=== PATIENT | female | born 1975 | race Caucasian/White ===

== ENCOUNTER 2016-10-08 11:48 | Emergency (ER) | payer OTHER ==
[~2016-10-08] VITALS: Ht 175.3 cm; Wt 141.9 kg
[~2016-10-08 11:48] MED LIST: ALBUAER19 INH; EPP3 IM; ERGO1CAP35 PO; HYDR-5688 PO; LEVOTAB PO; NALT1TAB14 PO; ONDA4TAB46 PO; VALA500T39 PO
[2016-10-08 11:54] VITALS: TEMP 36.8; Ht 175.3 cm; Wt 141.9 kg
[2016-10-08] MEDS ORDERED: IBUPROFEN 200 MG TAB PO STA (12:05)
[2016-10-08] MEDS ORDERED: ACETAMINOPHEN 500 MG TAB PO STA (12:05)
[2016-10-08] MEDS ORDERED: SODIUM CHLORIDE 0.9% 1000ML 1,000 ML IV STA ×3 (12:05→14:05)
[2016-10-08 12:30] LABS: BASO % 0.2 %; BASO ABS # 0.01 K/uL (0-0.2); COMPLETE YES; EOS % 1.6 %; HEMATOCRIT 42.9 % (37-47); IG% 0.4 %; LYMPH % 19.7 %; LYMPH ABS # 1.12 K/uL (1.2-3.4); MEAN CORPUSCULAR HEMOGLOBIN 30.9 pg (25-34); MEAN CORPUSCULAR HGB CONC 34.7 g/dl (32-36); MEAN PLATELET VOLUME 10.9 fL (7.4-10.4); MONO % 8.3 %; NEUT % 69.8 %; PLATELET COUNT 235 K/uL (130-400); RED BLOOD COUNT 4.82 M/uL (4.2-5.4); WHITE BLOOD COUNT 5.68 K/uL (4.8-10.8)
--- NOTE | 2016-10-08 12:31 | EMERGENCY ROOM VISIT NOTE ---
History Report prepared by Karthik: Rashaad Deleon Under the Supervision of: Dr. Jv Thompson M.D. First contact with patient: 12:03 Chief Complaint: FLU LIKE SX Stated Complaint: FLU, DEHYDRATION History of Present Illness The patient is a 41 year old female who presents to the Emergency Room with complaints of flu-like symptoms for the past several days. The patient has been experiencing nausea, vomiting, diarrhea, and cough throughout this time. She was sent to the ED by her PCP for IV fluids due to her dehydration. She rates her currently symptom severity a 7/10. She has not urinated since yesterday morning. The patient is also experiencing dry mouth, headaches, dizziness, weakness, and fatigue. The patient states she has a rash on her chest as well. Her last emesis was 0300 this morning. Her last bowel movement was 0830 this morning. She denies any abdominal pain and numbness at the moment. Source of History: patient Onset: several days Position: other (global) Symptom Intensity: 7/10 Quality: other (flu-like symptoms) Timing: constant Associated Symptoms: + cough, + diarrhea, + fatigue, + headache, + nausea, + rash, + vomiting, + weakness, No abdominal pain, No numbness Note: She is experiencing some dizziness. Review of Systems See HPI for pertinent positives & negatives. A total of 10 systems reviewed and were otherwise negative. Past Medical & Surgical Medical Problems: (1) GERD (gastroesophageal reflux disease) (2) Hypertension (3) Migraines Family History Diabetes mellitus FH: cancer FH: heart disease Hypertension Social History Smoking Status: Never Smoker Smokeless Tobacco Use: No Alcohol Use: none Drug Use: none Marital Status: single Housing Status: lives alone Occupation Status: employed Current/Historical Medications Scheduled Atenolol (Tenormin), 50 MG PO BID Atorvastatin (Lipitor), 10 MG PO HS Control Pills ( Control Pills), 1 TAB PO DAILY Cetirizine (Zyrtec), 10 MG PO QPM Epinephrine (Epipen *), 0.3 MG IM UD Ergocalciferol (Vitamin D Cap), 50,000 INTER.UNIT PO WK Lansoprazole (Prevacid), 30 MG PO BID Levothyroxine Sodium (Synthroid), 75 MCG PO QAM Lorazepam (Ativan), 0.5-1 MG PO HS Losartan Potassium (Cozaar), 100 MG PO QAM Lysine (L-Lysine), 500 MG PO BID Montelukast Sodium (Montelukast Sodium), 10 MG PO BID Naltrexone HCl-Bupropion HCl (Contrave 8-90 mg), 2 TAB PO AMPM Paroxetine (Paxil), 20 MG PO HS Sumatriptan Succinate (Imitrex Statdose), 6 MG SQ PRN Sumatriptan Succinate (Imitrex), 1 TAB PO UD Scheduled PRN Albuterol Inhaler (Ventolin Inhaler), 2 PUFFS INH QID PRN for PRN Metoclopramide (Reglan), 10 MG PO Q6H PRN for Nausea Ondansetron Hcl (Zofran), 4 MG PO PRN PRN for Nausea Allergies Coded Allergies: BEE STING (Verified Allergy, Unknown, LOCAL SWELLING, LIPS TINGLE, 06/08/16) Wasp Venom Protein (Verified Allergy, Unknown, LOCAL SWELLING,LIPS SWELL AND TINGLE, 06/08/16) Rizatriptan (Verified Adverse Reaction, Intermediate, URINARY INCONTINENCE , 06/08/16) Topiramate (Verified Adverse Reaction, Unknown, KIDNEY STONES, 06/08/16) Physical Exam Vital Signs Date Time Temp Pulse Resp B/P Pulse Ox O2 Delivery O2 Flow Rate FiO2 10/08/16 15:12 65 16 135/84 100 Room Air 10/08/16 14:23 70 14 119/79 100 10/08/16 12:54 73 16 158/83 100 Room Air 10/08/16 11:54 36.8 67 18 137/84 99 Room Air Physical Exam CONSTITUTIONAL: Mild distress HEENT: No icterus, moist mucous membranes NECK: No meningismus, trachea is midline. CARDIOVASCULAR: Regular rate, normal perfusion RESPIRATORY: Unlabored breathing. Clear to auscultation. GASTROINTESTINAL: Non-tender GENITOURINARY: No flank tenderness MUSCULOSKELETAL: Full range of motion NEUROLOGIC: No acute gross focal deficits. PSYCHIATRIC: Normal affect SKIN: Normal for ethnicity. Medical Decision & Procedures ER Provider Diagnostic Interpretation: X-ray results as stated below per interpretation by me and the radiologist. CHEST 2 VIEWS ROUTINE CLINICAL HISTORY: Cough. COMPARISON STUDY: Chest radiograph March 11, 2007. FINDINGS: Lung volumes are normal. No consolidation is identified. There is no pneumothorax or pleural effusion. There is borderline cardiomegaly. There is no evidence of pulmonary edema. There is a suspected hiatal hernia. IMPRESSION: 1. No acute cardiopulmonary findings. 2. Borderline cardiomegaly. 3. Suspected hiatal hernia. Electronically signed by: Aram Paul M.D. 10/08/2016 12:59 PM Dictated Date/Time: 10/08/2016 12:58 PM Laboratory Results 10/08/16 12:17 Red Blood Count 4.82, Mean Corpuscular Volume 89.0, Mean Corpuscular Hemoglobin 30.9, Mean Corpuscular Hemoglobin Concent 34.7, Mean Platelet Volume 10.9, Neutrophils (%) (Auto) 69.8, Lymphocytes (%) (Auto) 19.7, Monocytes (%) (Auto) 8.3, Eosinophils (%) (Auto) 1.6, Basophils (%) (Auto) 0.2, Neutrophils # (Auto) 3.97, Lymphocytes # (Auto) 1.12, Monocytes # (Auto) 0.47, Eosinophils # (Auto) 0.09, Basophils # (Auto) 0.01 10/08/16 12:17 Test 10/08/16 12:10 10/08/16 12:17 Influenza Type A Antigen Neg for Influ A (NEG) Influenza Type B Antigen Neg for Influ B (NEG) White Blood Count 5.68 K/uL (4.8-10.8) Red Blood Count 4.82 M/uL (4.2-5.4) Hemoglobin 14.9 g/dL (12.0-16.0) Hematocrit 42.9 % (37-47) Mean Corpuscular Volume 89.0 fL (80-100) Mean Corpuscular Hemoglobin 30.9 pg (25-34) Mean Corpuscular Hemoglobin Concent 34.7 g/dl (32-36) Platelet Count 235 K/uL (130-400) Mean Platelet Volume 10.9 fL (7.4-10.4) Neutrophils (%) (Auto) 69.8 % Lymphocytes (%) (Auto) 19.7 % Monocytes (%) (Auto) 8.3 % Eosinophils (%) (Auto) 1.6 % Basophils (%) (Auto) 0.2 % Neutrophils # (Auto) 3.97 K/uL (1.4-6.5) Lymphocytes # (Auto) 1.12 K/uL (1.2-3.4) Monocytes # (Auto) 0.47 K/uL (0.11-0.59) Eosinophils # (Auto) 0.09 K/uL (0-0.5) Basophils # (Auto) 0.01 K/uL (0-0.2) RDW Standard Deviation 45.0 fL (36.4-46.3) RDW Coefficient of Variation 13.7 % (11.5-14.5) Immature Granulocyte % (Auto) 0.4 % Immature Granulocyte # (Auto) 0.02 K/uL (0.00-0.02) Anion Gap 10.0 mmol/L (3-11) Est Creatinine Clear Calc Drug Dose 121.3 ml/min Estimated GFR () 88.5 Estimated GFR (Non- 76.3 BUN/Creatinine Ratio 7.7 (10-20) Calcium Level 8.9 mg/dl (8.5-10.1) Total Bilirubin 0.4 mg/dl (0.2-1) Aspartate Amino Transf (AST/SGOT) 14 U/L (15-37) Alanine Aminotransferase (ALT/SGPT) 21 U/L (12-78) Alkaline Phosphatase 96 U/L (45-117) Total Protein 7.6 gm/dl (6.4-8.2) Albumin 3.6 gm/dl (3.4-5.0) Globulin 4.0 gm/dl (2.5-4.0) Albumin/Globulin Ratio 0.9 (0.9-2) Labs reviewed by ED physician. Medications Administered Medications (Trade) Dose Ordered Sig/Félix Route Start Time Stop Time Status Last Admin Dose Admin Acetaminophen (Tylenol Tab) 1,000 mg NOW STAT PO 10/08/16 12:05 10/08/16 12:08 DC 10/08/16 12:16 1,000 MG Ibuprofen 400 mg 400 mg NOW STAT PO 10/08/16 12:05 10/08/16 12:08 DC 10/08/16 12:16 400 MG Sodium Chloride 1,000 ml @ 0 mls/hr Q0M STAT IV 10/08/16 12:05 10/08/16 12:08 DC 10/08/16 12:16 0 MLS/HR Sodium Chloride (Nss 1000ml) 1,000 ml @ 0 mls/hr Q0M STAT IV 10/08/16 14:05 10/08/16 14:07 DC 10/08/16 14:20 0 MLS/HR ED Course 1203: Past medical records reviewed. The patient was evaluated in room B2. A complete history and physical examination was performed. 1205: Sodium Chloride 1000 ml @ 0 mls/hr Wide Open IV, Advil Tab 400 mg PO, Tylenol Tab 1000 mg PO. 1405: Sodium Chloride 1000 ml @ 0 mls/hr Wide Open IV, Sodium Chloride 1000 ml @ 0 mls/hr Wide Open IV 1535: Upon reexamination the patient is resting. I discussed results and treatment plan with the patient. She verbalizes agreement and understanding. The patient is ready for discharge. Medical Decision Differential diagnoses include but are not limited to; viral syndrome and pneumonia. 41-year-old presented to the emergency room for vomiting diarrhea cough and generalized malaise for several days. She was hydrated with normal saline and labs as well as chest x-ray were unremarkable. She already has Zofran at home and was prescribed Reglan, as well, when necessary. She appeared well prior to discharge tolerating by mouth and micturating. She had no further questions prior to discharge was comfortable with plan. Impression Primary Impression: Viral syndrome Additional Impressions: Vomiting, Dehydration Scribe Attestation The scribe's documentation has been prepared under my direction and personally reviewed by me in its entirety. I confirm that the note above accurately reflects all work, treatment, procedures, and medical decision making performed by me. Departure Information Dispostion Home / Self-Care Prescriptions Metoclopramide (Reglan) 10 Mg Tab 10 MG PO Q6H Y for Nausea, #20 TAB Prov: Jv Thompson MD 10/08/16 Referrals Kiel Rahman D.O. (PCP) Forms HOME CARE DOCUMENTATION FORM, IMPORTANT VISIT INFORMATION Patient Instructions A Signature Page, My [facility]
[2016-10-08] MEDS ORDERED: LORA-741 PO (12:46)
[2016-10-08 12:48] LABS: BUN/CREATININE RATIO 7.7 (10-20); CALCIUM 8.9 mg/dl (8.5-10.1); CREATININE 0.93 mg/dl (0.60-1.20); POTASSIUM 3.3 mmol/L (3.5-5.1)
[2016-10-08 12:51] LABS: ALB/GLOB RATIO 0.9 (0.9-2)
--- NOTE | 2016-10-08 13:01 | DIAGNOSTIC IMAGING REPORT ---
CHEST 2 VIEWS ROUTINE CLINICAL HISTORY: Cough. COMPARISON STUDY: Chest radiograph March 11, 2007. FINDINGS: Lung volumes are normal. No consolidation is identified. There is no pneumothorax or pleural effusion. There is borderline cardiomegaly. There is no evidence of pulmonary edema. There is a suspected hiatal hernia. IMPRESSION: 1. No acute cardiopulmonary findings. 2. Borderline cardiomegaly. 3. Suspected hiatal hernia. Electronically signed by: Aram Paul M.D. 10/08/2016 12:59 PM Dictated Date/Time: 10/08/2016 12:58 PM
[2016-10-08] MEDS ORDERED: METO-157 PO (14:05)
[2016-10-08 15:12] VITALS: BP 135/84; PULSE 65; O2SAT 100
[2017-03-13] MEDS ORDERED: Revia (10:07)
[2017-03-13] MEDS ORDERED: BUPR75TA20 PO (10:07)
[2017-05-20] MEDS ORDERED: ATEN50TA8 PO (08:28)
[2017-05-20] MEDS ORDERED: CETI10TA84 PO (08:28)
[2017-05-20] MEDS ORDERED: LYSI500T4 PO (08:28)
[2017-05-20] MEDS ORDERED: LOSA1TAB38 PO (12:19)
[2017-05-20] MEDS ORDERED: PARO1TAB27 PO (12:20)
[2017-05-20] MEDS ORDERED: ATOR10TA88 PO (12:20)
[2017-05-20] MEDS ORDERED: MONT1TAB5 PO (12:22)
[2017-05-20] MEDS ORDERED: SUMA100T15 PO (12:46)
[2017-05-20] MEDS ORDERED: BCPILLS PO (12:46)
[2017-05-20] MEDS ORDERED: LEVO75TA PO (13:03)
== END 2016-10-08 15:35 | disposition home or self-care (01) ==
LOC: C.EDB 11:49
DX: B34.9 Viral infection, unspecified (principal); R11.10 Vomiting, unspecified; E86.0 Dehydration; K21.9 Gastro-esophageal reflux disease without esophagitis; I10 Essential (primary) hypertension

== ENCOUNTER 2017-05-20 15:40 | Emergency (ER) | payer OTHER ==
[~2017-05-20] VITALS: Ht 175.3 cm; Wt 152.9 kg
[~2017-05-20 15:40] MED LIST changes: +ATEN50TA8 PO; +ATOR10TA88 PO; +BCPILLS PO; +BUPR75TA20 PO; +CETI10TA84 PO; -HYDR-5688 PO; +LEVO75TA PO; -LEVOTAB PO; +LORA-741 PO; +LOSA1TAB38 PO; +LYSI500T4 PO; +MONT1TAB5 PO; -NALT1TAB14 PO; -ONDA4TAB46 PO; +PARO1TAB27 PO; +Revia; +SUMA100T15 PO; -VALA500T39 PO
[2017-05-20 15:53] VITALS: TEMP 36.7; Ht 175.3 cm; Wt 152.9 kg
[2017-05-20] MEDS ORDERED: KETOROLAC TROMETHAMINE 60 MG/2 ML VIAL IM STA (16:14)
--- NOTE | 2017-05-20 16:30 | EMERGENCY ROOM VISIT NOTE ---
ED Visit Note First contact with patient: 16:01 CHIEF COMPLAINT: Left knee pain HISTORY OF PRESENT ILLNESS: This 42-year-old female patient presents to the emergency department 3 days after sustaining an injury to the left knee after falling. The patient states she was in [place] visiting her brother, when a trip to [place] 3 days ago. The patient states they went for a headache, and while coming down the mountain, she stepped on a rock, inverting her right ankle. The patient states she then fell, and landed directly on her anterior left knee on a rock. The patient does report to left knee surgeries last year. She describes tightness in her right ankle, however does have full range of motion and states it is not as concerning. The patient states her left knee has been giving her difficulty. The patient does report swelling and bruising. There is pain anteriorly and posteriorly, worse with weightbearing. They rate the pain as burning and 7/10. The patient has been taking 600 mg ibuprofen intermittently with only minimal improvement in pain. The patient states they are able to walk on it, however this significantly worsens the pain. No numbness or tingling. The patient did have meniscal surgery on this knee. No ankle, foot or hip pain. REVIEW OF SYSTEMS: A 6 system review of systems was completed with positives and pertinent negatives listed in the HPI. ALLERGIES: Bee stings, Topamax, rizatriptan MEDICATIONS: Please see list. I did personally review the patient's medications with her appetite. PMH: Hypertension, GERD, hypothyroidism, hyperlipidemia, asthma, seasonal allergies, migraines SOCIAL HISTORY: The patient lives locally with family. She denies drug, tobacco use. The patient does report social alcohol use. PHYSICAL EXAM: Vital Signs: Reviewed Nurse's notes, vital signs stable. GENERAL : This is an obese 42-year-old female, no acute distress, but appears in pain, well-developed, well-nourished. MENTAL STATUS: Alert, oriented to person place and time, and cooperative. MUSCULOSKELETAL: The left knee is swollen. There is ecchymosis anteriorly. There is no obvious joint effusion present, however the patient's he is extremely large, and examination is difficult. The patient is tender to clearly and posteriorly. There is mild joint line tenderness. The patella does subluxate. Range of motion is limited due to pain. Strength of the quads and hamstrings is 5/5. Vaibhav's is negative. Santiago's and Anterior Drawer tests are negative. There is mild discomfort anteriorly with varus and valgus stressing. The right ankle is not swollen or tender and the skin is intact and there is no ligamentous instability. There is no fifth metatarsal tenderness. There is no tenderness over the rest of the foot. There is no calf or tibia/fibular tenderness. There is no visual deformity. The foot and toes are warm and well-perfused. Dorsalis pedis pulse 2+. Sensation to pain and light touch is intact. Capillary refill in bilateral LE <2 seconds. RADIOLOGY: X-Ray Left Knee: FINDINGS: Evaluation is mildly compromised due to suboptimal penetration. Evaluation for a left knee joint effusion is difficult. No acute fracture is identified. There is moderate narrowing of the medial compartment of the left knee. There is mild inferior spurring of the patella at the origin of the patellar tendon. IMPRESSION: 1. No acute fracture. 2. Suboptimal evaluation for left knee joint effusion, as described above. 3. Moderate medial compartment joint space narrowing. EMERGENCY DEPARTMENT COURSE: I examined the patient. X-rays of the left knee were reviewed by myself and read by radiology and reveals no acute fracture. The patient was instructed on the use of crutches. The patient was discharged home in good condition. DIFFERENTIAL DIAGNOSIS: Contusion, fracture, sprain, ligamentous strain, and others. DIAGNOSIS: Right ankle sprain, left knee contusion DISCHARGE INSTRUCTIONS: ORTHOPEDIC INSTRUCTIONS: Ibuprofen(Motrin, Advil) may be used for fever or pain. Use 600mg every six hours as needed. Take with food. Avoid using more than 2400mg in a 24 hour period. Do not use 2400mg per day for more than three consecutive days without physician direction. Prolonged inappropriate use can lead to stomach upset or ulcers. (AND/OR) Acetaminophen(Tylenol) may be used for fever or pain. Use 1000mg every six hours as needed. Avoid using more than 3000mg in a 24 hour period. Ice compresses for 20 minutes at a time four times daily for 2-3 days. Use the crutches as instructed. Rest and elevate your injury, but keep moving to prevent blood clots. You may use an ZEV wrap to help with swelling and provide compression. Return to the ER immediately for any numbness, tingling, severe pain, extreme swelling in the extremity or as needed. Call [facility], [phone], if no improvement in 1-2 weeks, to arrange follow up for your injury. Follow-up with your primary care physician in 2 to 3 days for a recheck of your current condition. Problem List Medical Problems: (1) GERD (gastroesophageal reflux disease) Status: Chronic (2) Hypertension Status: Chronic (3) Migraines Status: Chronic Current/Historical Medications Scheduled Atenolol (Tenormin), 50 MG PO BID Atorvastatin (Lipitor), 10 MG PO HS Control Pills ( Control Pills), 1 TAB PO DAILY Cetirizine (Zyrtec), 10 MG PO QPM Epinephrine (Epipen), 0.3 MG IM UD Lansoprazole (Prevacid), 30 MG PO BID Levothyroxine Sodium (Synthroid), 75 MCG PO QAM Losartan Potassium (Cozaar), 100 MG PO QAM Lysine (L-Lysine), 500 MG PO BID Montelukast Sodium (Montelukast Sodium), 10 MG PO HS Paroxetine (Paxil), 20 MG PO HS Sumatriptan Succinate (Imitrex Statdose), 6 MG SQ PRN Sumatriptan Succinate (Imitrex), 1 TAB PO UD Scheduled PRN Albuterol Hfa (Ventolin Hfa), 2 PUFFS INH QID PRN for SOB/Wheezing Allergies Coded Allergies: BEE STING (Verified Allergy, Unknown, LOCAL SWELLING, LIPS TINGLE, 06/08/16) Wasp Venom Protein (Verified Allergy, Unknown, LOCAL SWELLING,LIPS SWELL AND TINGLE, 06/08/16) Rizatriptan (Verified Adverse Reaction, Intermediate, URINARY INCONTINENCE , 06/08/16) Topiramate (Verified Adverse Reaction, Unknown, KIDNEY STONES, 06/08/16) Vital Signs Date Time Temp Pulse Resp B/P (MAP) Pulse Ox O2 Delivery O2 Flow Rate FiO2 05/20/17 15:53 36.7 85 18 146/96 97 Room Air Medications Administered Medications (Trade) Dose Ordered Sig/Félix Route Start Time Stop Time Status Last Admin Dose Admin Ketorolac Tromethamine (Toradol Inj) 60 mg NOW STAT IM 05/20/17 16:14 05/20/17 16:15 DC 05/20/17 16:18 60 MG Departure Information Impression Primary Impression: Knee contusion Dispostion Home / Self-Care Condition GOOD Referrals Kiel Rahman D.O. (PCP) Ed Vides D.O. Patient Instructions My [facility] Additional Instructions ORTHOPEDIC INSTRUCTIONS: Ibuprofen(Motrin, Advil) may be used for fever or pain. Use 600mg every six hours as needed. Take with food. Avoid using more than 2400mg in a 24 hour period. Do not use 2400mg per day for more than three consecutive days without physician direction. Prolonged inappropriate use can lead to stomach upset or ulcers. (AND/OR) Acetaminophen(Tylenol) may be used for fever or pain. Use 1000mg every six hours as needed. Avoid using more than 3000mg in a 24 hour period. Ice compresses for 20 minutes at a time four times daily for 2-3 days. Use the crutches as instructed. Rest and elevate your injury, but keep moving to prevent blood clots. You may use an ZEV wrap to help with swelling and provide compression. Return to the ER immediately for any numbness, tingling, severe pain, extreme swelling in the extremity or as needed. Call [facility], [phone], if no improvement in 1-2 weeks, to arrange follow up for your injury. Follow-up with your primary care physician in 2 to 3 days for a recheck of your current condition. Work Instructions Return To Work: 1 day Problem Qualifiers Primary Impression: Knee contusion Encounter type: initial encounter Laterality: left Qualified Codes: S80.02XA - Contusion of left knee, initial encounter
[2017-05-20] MEDS ORDERED: EPP3/2 IM (16:34)
[2017-05-20] MEDS ORDERED: VNTHFA/IN INH (16:34)
--- NOTE | 2017-05-20 17:16 | DIAGNOSTIC IMAGING REPORT ---
LEFT KNEE 3 VIEWS CLINICAL HISTORY: Knee pain following fall. COMPARISON: None FINDINGS: Evaluation is mildly compromised due to suboptimal penetration. Evaluation for a left knee joint effusion is difficult. No acute fracture is identified. There is moderate narrowing of the medial compartment of the left knee. There is mild inferior spurring of the patella at the origin of the patellar tendon. IMPRESSION: 1. No acute fracture. 2. Suboptimal evaluation for left knee joint effusion, as described above. 3. Moderate medial compartment joint space narrowing. Electronically signed by: Aram Paul M.D. 05/20/2017 5:15 PM Dictated Date/Time: 05/20/2017 5:13 PM
[2017-05-20 17:39] VITALS: BP 177/113; PULSE 83; O2SAT 98
[2017-05-20] MEDS ORDERED: LANS30CA12 PO (22:37)
[2017-05-20] MEDS ORDERED: SUMA6KIT SQ (22:38)
== END 2017-05-20 17:40 | disposition home or self-care (01) ==
LOC: C.EDB 15:42 → C.EDD 17:40
DX: S80.02XA Contusion of left knee, initial encounter (principal); W19.XXXA Unspecified fall, initial encounter; Y92.89 Other specified places as the place of occurrence of the external cause; I10 Essential (primary) hypertension; E78.5 Hyperlipidemia, unspecified; E03.9 Hypothyroidism, unspecified; J45.909 Unspecified asthma, uncomplicated; K21.9 Gastro-esophageal reflux disease without esophagitis; Z79.899 Other long term (current) drug therapy; Z88.8 Allergy status to other drugs, medicaments and biological substances; Z91.030 Bee allergy status

== ENCOUNTER → 2017-12-08 | Day surgery (SDC) | payer OTHER ==
[2017-12-07 09:13] VITALS: Ht 175.3 cm; Wt 159.1 kg
[~2017-12-08] VITALS: Ht 175.3 cm; Wt 159.1 kg
[~2017-12-08] MED LIST changes: -ALBUAER19 INH; -ATEN50TA8 PO; +ATOR10TA82 PO; -ATOR10TA88 PO; -BUPR75TA20 PO; -EPP3 IM; +EPP3/2 IM; -ERGO1CAP35 PO; +FLUT0.15 NAE; +LANS30CA12 PO; +LIDOCAINE HCL 2% 2 ML VIAL (20MG/ML) ONE; -LORA-741 PO; +LORC20TA PO; +NITRO-BID EXT; +ONDA4TAB46 PO; -PARO1TAB27 PO; +PROP20TA67 PO; +PROPOFOL IV EMULSION 10 MG/ML 20 ML VIAL IV ONE; +RANI300T2 PO; -Revia; +SUMA6KIT SQ; +TRAM-10 PO; +VALA500T60 PO; +VNTHFA/IN INH
[2017-12-08 09:32] VITALS: TEMP 36.6
--- NOTE | 2017-12-08 09:50 | Endo History and Physical ---
History & Physical Date of Service: Dec 08, 2017. Chief Complaint: SCHATZKI'S RING Referring Physician: DR. FIGUEROA History of Present Illness ring Past Medical History Asthma, Reflux, High Cholesterol, Hypertension, Thrombophlebitis, Thyroid Disease Past Surgical History Hx Cardiac Surgery: No Hx Internal Defibrillator: No Hx Pacemaker: No Hx Abdominal Surgery: No Hx of Implantable Prosthesis: No Hx Post-Op Nausea and Vomiting: Yes Hx Cancer Surgery: No Hx Thoracic Surgery: No Hx Orthopedic: Yes (LEFT KNEE ARTHROSCOPY X 2) Hx Urinary Tract Surgery: Yes (LITHOTRIPSY) Family History Polyp Social History Smoking Status: Never Smoker Hx Substance Use: No Hx Alcohol Use: Yes (RARELY) Allergies Coded Allergies: BEE STING (Verified Allergy, Unknown, LOCAL SWELLING, LIPS TINGLE, 12/07/17) Wasp Venom Protein (Verified Allergy, Unknown, LOCAL SWELLING,LIPS SWELL AND TINGLE, 12/07/17) Rizatriptan (Verified Adverse Reaction, Intermediate, URINARY INCONTINENCE , 12/07/17) Topiramate (Verified Adverse Reaction, Unknown, KIDNEY STONES, 12/07/17) Current Medications Reported Home Medications Medications Dose Route/Sig Max Daily Dose Days Date Category [Nitro-Bid] 1 Appln EXT DIRECTED PRN 12/07/17 Reported Zofran (Ondansetron HCl) 4 Mg Tab 4 Mg PO Q6H PRN 12/07/17 Reported Valtrex (Valacyclovir HCl) 500 Mg Tab 1,000 Mg PO DIRECTED PRN 12/07/17 Reported Ultram (Tramadol HCl) 50 Mg Tab 50 Mg PO Q6H PRN 12/07/17 Reported Belviq Xr (Lorcaserin HCl) 20 Mg Tab 1 Tab PO QAM 12/07/17 Reported Flonase Allergy Relief (Fluticasone Propionate (Nasal)) 50 Mcg/Act Spr 2 Pullman RUPERTO BID PRN 12/07/17 Reported Zantac (Ranitidine HCl) 300 Mg Tab 1 Tab PO HS 11/02/17 Reported Inderal (Propranolol HCl) 20 Mg Tab 40 Mg PO BID 08/22/17 Reported Ventolin Hfa (Albuterol) 200 Puffs/23369 Mcg Aers 2 Puffs INH QID PRN 05/20/17 Reported Epipen (Epinephrine) 0.3 Mg/0.3 Ml Inj 0.3 Mg IM UD 05/20/17 Reported Control Pills (Miscellaneous) Tab 1 Tab PO QAM 10/08/16 Reported Imitrex (Sumatriptan Succinate) 100 Mg Tab 1 Tab PO UD 30 10/08/16 Reported L-Lysine (Lysine) 500 Mg Tab 500 Mg PO BID 05/10/16 Reported Zyrtec (Cetirizine HCl) 10 Mg Tab 10 Mg PO QPM 05/10/16 Reported Montelukast Sodium 10 Mg Tab 10 Mg PO HS 90 05/22/15 Reported Lipitor (Atorvastatin Calcium) 10 Mg Tab 10 Mg PO HS 05/22/15 Reported Cozaar (Losartan Potassium) 100 Mg Tab 100 Mg PO QAM 05/22/15 Reported Synthroid (Levothyroxine Sodium) 75 Mcg Tab 75 Mcg PO QAM 08/19/13 Reported Imitrex Statdose (Sumatriptan Succinate) 6 Mg/0.5 Ml Inj 6 Mg SQ PRN 03/10/07 Reported Prevacid (Lansoprazole) 30 Mg Capcr 30 Mg PO BID 03/10/07 Reported Vital Signs Weight (Kilograms): 159.09 Height (Feet): 5 Height (Inches): 9 Date Time Temp Pulse Resp B/P (MAP) Pulse Ox O2 Delivery O2 Flow Rate FiO2 12/08/17 09:32 36.6 85 18 140/83 (102) 95 Room Air Physical Exam General Appearance: no apparent distress Respiratory/Chest: Auscultation: breath sounds normal Cardiovascular: Heart Auscultation: RRR Abdomen: Inspection & Palpation: soft Assessment and Plan Dysphagia - EGD
--- NOTE | 2017-12-08 10:16 | Discharge Instructions ---
Endoscopy Patient Instructions Date / Procedure(s) Performed Dec 08, 2017. EGD Allergy Information Coded Allergies: BEE STING (Verified Allergy, Unknown, LOCAL SWELLING, LIPS TINGLE, 12/07/17) Wasp Venom Protein (Verified Allergy, Unknown, LOCAL SWELLING,LIPS SWELL AND TINGLE, 12/07/17) Rizatriptan (Verified Adverse Reaction, Intermediate, URINARY INCONTINENCE , 12/07/17) Topiramate (Verified Adverse Reaction, Unknown, KIDNEY STONES, 12/07/17) Discharge Date / Findings Dec 08, 2017. Hiatal hernia, ring. Provider Instructions Activity Restrictions - No exercising or heavy lifting for 24 hours. - Do not drink alcohol the day of the procedure. - Do not drive a car or operate machinery until the day after the procedure. - Do not make any important decisions or sign important papers in 24 hours after the procedure. Following Day: - Return to full activity which may include returning to work/school. Diet Start your diet with liquids and light foods (jello, soup, juice, toast). Then eat your usual diet if not nauseated. Treatment For Common After Affects For mild abdominal pain, bloating, or excessive gas: - Rest - Eat lightly - Lie on right side Follow-Up Information Follow-up with DR. FIGUEROA as scheduled Anesthesia Information What You Should Know You have had a procedure that required some medicine to reduce anxiety and discomfort. This treatment is called moderate sedation. After receiving the treatment, you may be sleepy, but you will be able to breathe on your own. The effects of the treatment may last for several hours. Follow these instructions along with Activity/Diet recommendations noted above: * Do NOT do anything where dizziness or clumsiness would be dangerous. * Rest quietly at home today, then you can be up and about tomorrow. * Have a responsible person stay with you the rest of today. * You may have had an I.V. today. If so, you may take the dressing off later today. Recommendations Call your doctor if: * Trouble breathing * Continuous vomiting for more than 24 hours * Temperature above 101 degrees * Severe abdominal pain or bloating * Pain not relieved by pain medicine ordered * There is increased drainage or redness from any incision * A large amount of rectal bleeding greater than 2-3 tablespoons. (If you had a polyp/s removed or have hemorrhoids, a small amount of blood - from the rectum is to be expected.) * You have any unanswered questions or concerns. IN THE EVENT OF A SERIOUS EMERGENCY, GO TO THE NEAREST EMERGENCY ROOM Your discharge instructions were prepared by provider Corrie Sparks. Patient Instructions Signature Page Kim Ferreira Patient (or Guardian) Signature/Date: I have read and understand the instructions given to me by my caregivers. Caregiver/RN/Doctor Signature/Date: The above-named patient and/or guardian has received patient instructions on this date. + Original Patient Signature Page (only) stays with chart. Please make copy for patient.
--- NOTE | 2017-12-08 10:30 | Anesthesiology Progress Note ---
Anesthesia Post Op Note Date & Time Dec 08, 2017 at 10:30 Vital Signs Pain Intensity: 0 Vital Signs Past 12 Hours Date Time Temp Pulse Resp B/P (MAP) Pulse Ox O2 Delivery O2 Flow Rate FiO2 12/08/17 10:18 89 18 151/80 (103) 96 Room Air 12/08/17 09:32 36.6 85 18 140/83 (102) 95 Room Air Notes Mental Status: alert / awake / arousable, participated in evaluation Pt Amnestic to Procedure: Yes Nausea / Vomiting: adequately controlled Pain: adequately controlled Airway Patency, RR, SpO2: stable & adequate BP & HR: stable & adequate Hydration State: stable & adequate Anesthetic Complications: no major complications apparent
[2017-12-08 10:48] VITALS: BP 157/84; PULSE 78; O2SAT 96
--- NOTE | 2017-12-08 11:07 | GI REPORT ---
Procedure Date: 12/08/2017 9:55 AM Procedure: Upper GI endoscopy Indications: Dysphagia Medicines: See the Anesthesia note for documentation of the administered medications Complications: No immediate complications. Estimated Blood Loss: Estimated blood loss: none. Procedure: Pre-Anesthesia Assessment: - ASA Grade Assessment: III - A patient with severe systemic disease. After obtaining informed consent, the endoscope was passed under direct vision. Throughout the procedure, the patient's blood pressure, pulse, and oxygen saturations were monitored continuously. The scope was introduced through the mouth, and advanced to the second part of duodenum. The upper GI endoscopy was accomplished without difficulty. The patient tolerated the procedure well. Findings: The distal esophagus was tortuous. The GE junction was at 30 cm. There was a moderate sized hiatal hernia. There was trapping of food and debris in the hiatal hernia. The stomach and duodenum were normal. A guidewire was placed and the scope was withdrawn. Dilation was performed at the gastroesophageal junction with a Savary dilator with no resistance at 16 mm, 18 mm and 20 mm. There was no disruption post dilation. Impression: - Ring, hernia. Large bore dilator passed. Recommendation: - Discharge patient to home. Corrie Crocker M.D. Corrie Crocker MD 12/08/2017 10:20:39 AM This report has been signed electronically. Note Initiated On: 12/08/2017 9:55 AM I attest to the content of the Intraoperative Record and orders documented therein, exceptions below
== END | disposition home or self-care (01) ==
LOC: C.GI 08:58
PROVIDERS: ATTEND Internal Medicine Gastroenterology
DX: K22.2 Esophageal obstruction (principal); K44.9 Diaphragmatic hernia without obstruction or gangrene; J45.909 Unspecified asthma, uncomplicated; K21.9 Gastro-esophageal reflux disease without esophagitis; E78.00 Pure hypercholesterolemia, unspecified; E03.9 Hypothyroidism, unspecified; E66.01 Morbid (severe) obesity due to excess calories; E78.5 Hyperlipidemia, unspecified; I10 Essential (primary) hypertension; Z86.72 Personal history of thrombophlebitis; Z83.71 Family history of colonic polyps; Z88.8 Allergy status to other drugs, medicaments and biological substances; Z87.442 Personal history of urinary calculi